=== PATIENT | male | born 1985 | race African-American/Black ===

== ENCOUNTER 2016-08-29 12:33 | Emergency (ER) | payer OTHER ==
[~2016-08-29] VITALS: Ht 175.3 cm; Wt 90.7 kg
[2016-08-29 13:02] VITALS: BP 119/73
[2016-08-29 13:45] VITALS: BP 110/58
--- NOTE | 2016-08-30 07:28 | Emergency Room Report ---
History of Present Illness General Chief Complaint: Abdominal Pain Source: Patient Present Illness HPI 31-year-old male presents to ED her evaluation. Mother at bedside. States that she brought patient here because [employer] takes good care of her. States that patient having abdominal pain for the last 4 days. Was seen at another ER 4 days ago. Diagnosed with diverticulitis and was prescribed antibiotics. Patient was prescribed Cipro Flagyl and Daykin for pain. States he had blood work and CT confirming diverticulitis. Mother brought patient here because she is not convinced he has diverticulitis. Patient notes left-sided abdominal pain , throbbing, 7/10, nonradiating. Denies fevers or chills. Denies nausea or vomiting. Denies any diarrhea or blood in stool. States he's been taking the Cipro as directed twice daily however he's been only taking the Flagyl twice daily even though it is been prescribed for 4 times a day. No other aggravating relieving factors. Denies any other associated symptoms Allergies: Coded Allergies: No Known Allergies (Unverified , 08/29/16) Patient History Past Medical History: none Past Surgical History: none Pertinent Family History: none Social History: Denies: alcohol use, drug use, smoking Immunizations: UTD Reviewed Nursing Documentation: PMH: Agreed, PSxH: Agreed Review of Systems All Other Systems: negative except mentioned in HPI Physical Exam Vital Signs Date Time Temp Pulse Resp B/P Pulse Ox O2 Delivery O2 Flow Rate FiO2 08/29/16 12:37 98.1 71 14 104/67 97 Room Air Sp02 EP Interpretation: reviewed, normal General Appearance: no apparent distress, alert, GCS 15, non-toxic Head: normocephalic, atraumatic Eyes: bilateral eye PERRL, bilateral eye normal inspection ENT: hearing grossly normal, normal pharynx, no angioedema, normal voice Neck: full range of motion, supple/symm/no masses Respiratory: chest non-tender, lungs clear, normal breath sounds, speaking full sentences Cardiovascular #1: regular rate, rhythm, no edema Cardiovascular #2: 2+ carotid (R), 2+ carotid (L), 2+ radial (R), 2+ radial (L) , 2+ dorsalis pedis (R), 2+ dorsalis pedis (L) Gastrointestinal: normal bowel sounds, soft, non-distended, no guarding, no rebound, tenderness - L sided Rectal: deferred Genitourinary: normal inspection, no CVA tenderness Musculoskeletal: back normal, gait/station normal, normal range of motion, non- tender Neurologic: alert, oriented x3, responsive, motor strength/tone normal, sensory intact, speech normal Psychiatric: judgement/insight normal, memory normal, mood/affect normal, no suicidal/homicidal ideation Reflexes: 3+ bicep (R), 3+ bicep (L), 3+ tricep (R), 3+ tricep (L), 3+ knee (R) , 3+ knee (L) Skin: normal color, no rash, warm/dry, well hydrated Lymphatic: no adenopathy Medical Decision Making Diagnostic Impression: Primary Impression: Diverticulitis Qualified Codes: K57.32 - Diverticulitis of large intestine without perforation or abscess without bleeding ER Course 31-year-old male presents ED complaining of left-sided abdominal pain Diagnoses-constipation, diverticulitis, gastritis patient placed on stretcher. After initial history physical exam reveals a young male in no acute distress. There is some left-sided abdominal pain. No guarding or rebound. Abdomen is otherwise soft. Patient appears nontoxic. Review paperwork from patient's prior ER visit. Patient had workup including CT scan which confirmed diverticulitis. Patient was prescribed Cipro and Flagyl which I explained are the appropriate antibiotics Patient is taking the Cipro properly however patient states the pharmacist told him to take the Flagyl twice daily while it is prescribed for 4 times daily I explained to patient he needs to take medications as directed on the bottle as prescribed by the physician I did explain that after 4 days is not likely to have complete resolution of his symptoms. Patient is to complete the antibiotic course before he returns for reevaluation. At this time I do not believe patient requires additional workup including labs or imaging. Reassurance given to patient. Encourage patient to complete his antibiotics as prescribed diagnosis - diverticulitis Stable and discharged to home. Complete antibiotics as prescribed. Followup with PMD. Return to ED if symptoms recur or worsen Last Vital Signs Date Time Temp Pulse Resp B/P Pulse Ox O2 Delivery O2 Flow Rate FiO2 08/29/16 13:45 60 15 110/58 100 Room Air 08/29/16 13:45 98.1 Status: improved Disposition: HOME, SELF-CARE Condition: Stable Referrals: [facility]ERR[facility] (PCP) Patient Instructions: Diverticulitis, [id number] Additional Instructions: take your medications as directed. f/up with PMD. return to ED if symptosm recur/worsen JULISSA JARRELL M.D. Aug 30, 2016 07:28
== END 2016-08-29 13:45 | disposition home or self-care (01) ==
LOC: EMR 13:14 → EDBD 13:14 → EMR 13:45
DX: K57.92 Diverticulitis of intestine, part unspecified, without perforation or abscess without bleeding (principal); K59.00 Constipation, unspecified; K29.70 Gastritis, unspecified, without bleeding
CPT/HCPCS: 99281